=== PATIENT | female | born 1940 | race Caucasian/White ===

== ENCOUNTER 2024-01-10 04:34 | Observation (INO) | payer OTHER, SELFPAY ==
[2024-01-09 23:54] VITALS: BP 165/68
[2024-01-10] VITALS (8 sets, daily range): BP systolic 130–171; BP diastolic 51–75; PULSE 69–75; BMI 28.7; BMI 28.5
[2024-01-10 00:38] LABS: % Basophils 0.5 % (0-2); % Eosinophils 1.6 % (0-6); % Immature Granulocytes 0.5 % (0-0.5); % Lymphocytes 8.5 % (20.5-51.1); % Monocytes 4.8 % (1.7-9.3); % Neutrophils 84.1 % (42.2-75.2); Absolute Basophils 0.1 10^3/uL (0-0.2); Absolute Eosinophils 0.2 10^3/uL (0-0.7); Absolute Immature Granulocytes 0.1 10^3/uL (0-0.05); Absolute Lymphocytes 0.9 10^3/uL (1.2-3.4); Absolute Monocytes 0.5 10^3/uL (0.1-0.6); Absolute Neutrophils 8.7 10^3/uL (1.4-6.5); Hemoglobin 10.6 g/dL (12.0-16.0); Mean Corp Hgb Conc. 33.1 g/dL (33.0-37.0); Mean Corpuscular Hgb 29.4 pg (27.0-31.0); Mean Corpuscular Volume 88.9 fL (81.0-99.0); Mean Platelet Volume 9.5 fL (7.4-10.4); Nucleated Red Blood Cells % 0 %; Platelet Count 227 10^3/uL (130-400); Red Cell Dist. Width 14.1 % (11.5-14.5); White Blood Cell Count 10.4 10^3/uL (4.8-10.8)
[2024-01-10] MEDS: ANTIVERT 25 MG PO (00:52)
[2024-01-10] MEDS: NSS 1000 IV (00:52)
[2024-01-10 00:54] LABS: ALT (SGPT) 21 U/L (0-35); AST (SGOT) 33 U/L (14-36); Albumin 4.3 g/dl (3.5-5.0); Alkaline Phosphatase 156 U/L (38-126); Blood Urea Nitrogen 34 mg/dl (7-17); Calcium 9.8 mg/dl (8.4-10.2); Carbon Dioxide 30 mmol/L (22-30); Chloride 101 mmol/L (98-107); Estimated Creatinine Clearance 35 ml/min; Glucose 139 mg/dl (70-99); Potassium 3.8 mmol/L (3.5-5.1); Sodium 144 mmol/L (135-145); Total Bilirubin 0.4 mg/dl (0.2-1.3); Total Protein 7.8 g/dl (6.3-8.2); eGFR 56.25
[2024-01-10 00:58] LABS: Troponin I < 0.012 ng/ml
[2024-01-10] MEDS: ZOFRAN 4 MG IV ×2 (01:03→03:26)
--- NOTE | 2024-01-10 01:10 | ED.GENMED ---
History of Present Illness
General
Chief Complaint: Dizziness
Source: patient
Exam Limitations: none
Time Seen by Provider: 01/10/24 00:19
History of Present Illness
History of Present Illness:
This is a 83 year old female that comes in with c/o just not feeling well and dizziness. States that she was stung by a yellow jacked on Tuesday. States that she was at [facility] [employer] and she just went outside for second and she was
stung. States that the area is on the left elbow and it still feels warm. 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 Then she went to see her PCP. Tuesday she was Ok but just not feeling herself.
Today she went to a Picnic and went outside. states that she was slightly dizzy but still drove. States that she was at home tonight watching TV and she broke out in a sweat and was dizzy. States that it was a lightheaded feeling. Denies any
fever, chills, chest pain, SOB, abd pain, nausea, vomiting, diarrhea, headache, urinary burning.
Past History
Past History
ED Past Medical History: Cancer (Breast CA), HTN, Hypercholesterolemia and Other (Lyme disease Psoriasis, Anemia, Vertigo)
ED Past Surgical History: Cardiac (Pacemaker) and Other (cataracts, Left mastectomy)
Social History
Tobacco: Non-smoker
Alcohol: None
Personal:
Living: assisted living ([facility])
Review of Systems
Review of Systems
All Other Systems: ROS reviewed and negative except as documented in HPI and ROS
Constitutional: Reports no symptoms; Denies fever or chills
EENT: Reports no symptoms
Respiratory: Reports no symptoms; Denies cough or trouble breathing
Cardiac: Reports no symptoms; Denies chest pain
ABD/GI: Reports no symptoms; Denies abdominal pain, nausea, vomiting or diarrhea
: Reports no symptoms; Denies dysuria, frequency or urgency
Musculoskeletal: Reports no symptoms
Skin: Reports no symptoms
Neurological: Reports dizzy (Lightheaded); Denies headache
Psychiatric: Reports no symptoms
Phy Exam
General Physical Exam
General Presentation: no apparent distress
General age: appears stated age
General Skin: warm and dry
General Habitus: elderly
General Mental: alert
General Hydration: dry mucous membranes
ENT Exam
ENT Exam: TM's normal, pharynx normal and neck supple
Eye Exam
Eye Exam: PERRL and EOMI
Cardiovascular Exam
Cardiovascular Exam: regular rate/rhythm, no edema, normal peripheral pulses and other (Murmur)
Pulmonary Exam
Pulmonary Exam: lungs clear, no respiratory distress, no rales, chest non tender, no crackles, no wheezing and no cough
Gastrointestinal Exam
Gastrointestinal Exam: normal bowel sounds, non tender, soft, no organomegaly, no pulsatile mass and non distended
NIH Stroke Score
Level of Consciousness: 0 - Alert
LOC questions: 0-Answers both correctly
LOC Commands: 0-Performs both correctly
Best Gaze: 0-Normal
Visual Clark: 0=Normal, no visual loss
Facial palsy: 0=Normal, symmetrical
Motor - Right Arm: 0=No drift 10 seconds
Motor - Left Arm: 0=No drift 10 seconds
Motor - Right Le-No drift 5 seconds
Motor - Left Le-No drift 5 seconds
Limb Ataxia: 0-Absent
Sensation: 0-Normal
Best Language: 0-No aphasia
Dysarthria: 0-Normal
Extinction and Inattention: 0-No abnormality
Total Score:: 0
Musculoskeletal Exam
Musculoskeletal Exam: full ROM, no edema and other (Hand grasp and push pulls equal)
Skin Exam
Skin Exam: normal color, warm/dry, no rash and no petechia
Psychiatric Exam
Psychiatric Exam: normal mood/affect
Course
Orders/Labs/Results
Orders:
Orders
01/10/24 00:04
EKG [Electrocardiogram (*1)] Urgent
Reason for Study: Other
Other Reason for Exam: dizziness
EKG- Treatment ONCE
01/10/24 00:22
Complete Blood Count/With Diff Urgent
Comprehensive Metabolic Panel Urgent
Troponin I Urgent
01/10/24 00:38
Orthostatic VS- Treatment ONCE
0.9% Sodium Chloride 1000 ml [Nss] 1,000 ml IV BOLUS
Meclizine [Antivert] 25 mg PO NOW STA
01/10/24 00:39
CT Head W/o Iv Contrast Urgent
Comment:
Reason For Exam: Dizziness
01/10/24 01:00
Ondansetron Injectable [Zofran] 4 mg .ROUTE .STK-MED ONE
01/10/24 01:03
Ondansetron Injectable [Zofran] 4 mg IV NOW STA
01/10/24 01:10
diazePAM [Valium Injection] 2 mg IV NOW STA
01/10/24 02:46
Urinalysis Reflex To Culture Urgent
Date Specimen was Collected: 01/10/24
Time Specimen was Collected: 02:45
Urine Microscopic Reflex Cult Urgent
Urine Culture Urgent
BARBARA Source: U
Specimen Description:
Date Specimen was Collected: 01/10/24
Time Specimen was Collected: 02:45
01/10/24 03:21
Ondansetron Injectable [Zofran] 4 mg IV NOW STA
01/10/24 04:00
Flush (0.9% Sodium Chloride) [Flush (Nss)] See Dose Instructions IV PER PROTOCOL
Abnormal Lab Results
01/10/24 01/10/24
00:22 02:46
RBC 3.60 L 10^6/uL
(4.20-5.40)
Hgb 10.6 L g/dL
(12.0-16.0)
Hct 32.0 L %
(37.0-47.0)
Abs Immat Gran (auto) 0.1 H 10^3/uL
(0-0.05)
Absolute Neuts (auto) 8.7 H 10^3/uL
(1.4-6.5)
Absolute Lymphs (auto) 0.9 L 10^3/uL
(1.2-3.4)
Neutrophils % 84.1 H %
(42.2-75.2)
Lymphocytes % 8.5 L %
(20.5-51.1)
BUN 34 H mg/dl
(7-17)
Glucose 139 H mg/dl
(70-99)
Alkaline Phosphatase 156 H U/L
(38-126)
Leukocyte Esterase Rfl Trace A
(Negative)
Urine RBC 3-6 A /HPF
(0-2)
Urine WBC (Reflex) 16-20 A /HPF
(0-5)
Urine Bacteria (Reflex) Moderate A
(Negative)
01/10/24 00:22
01/10/24 00:22
H/H slightly low. Dehydration. Glucose nonfasting. Alk phos elevation. Troponin <0.012 , Urine positive for infection.
Vital Signs
Initial and Last Documented VS:
Initial Vital Signs
Temp Pulse Resp BP Pulse Ox
98.0 F 64 20 165/68 100
01/09/24 23:54 01/09/24 23:54 01/09/24 23:54 01/09/24 23:54 01/09/24 23:54
Last Documented Vital Signs
Temp Pulse Resp BP Pulse Ox
98.0 F 73 13 157/58 96
01/09/24 23:54 01/10/24 03:15 01/10/24 03:15 01/10/24 03:00 01/10/24 02:46
MDM/Problems Addressed
Differential Diagnosis Includes:
Dehydration, UTI, Vertigo
MDM/Problems Addressed:
This is a 83 year old female that comes in with c/o dizziness. States that she was stung by a bee on Tuesday. Patient saw her PCP on . States that she has just not been feeling herself. States that she was lightheaded today but still drove
her car. Tonight watching TV she was dizzy and broke out into a sweat.
Will check labs, CT head, IV fluids, Interrogate Pacer
back into see patient. Patient states that she tried to get up to the BR and was still feeling dizzy. Patient denies dizziness when turning sided to side. Will let the fluid complete and then recheck patient. Explained that her CT of the head was
normal and her blood work shows dehydration.
Into see patient. Attempted to have patient sit on the edge of the bed. Patient became nauseated with moving and dizzy. Will admit. Hospitalist notified,
Chronic conditions affecting care:
Vertigo
Acute Exacerbation and/or Progression of Chronic Illness:
Vertigo
*Radiology
Radiology exam reviewed: radiology read reviewed (CT head- night hawk-No acute intracranial abnormalities. )
*Pulse Oximetry
Patient hypoxic: no
*EKG
Interpreted by ED Provider?: Yes
Heart Rate: 70
Rate: normal
Rhythm: ventricular paced
*Medical Technologist Clinical Interpretation
Rate: normal
Heart Rate: 73
Rhythm: ventricular paced
*Critical Care Note
Total Time (30-74mins, 75-104mins- exclusive of procedures): Not Applicable
ED Attending Note
-
Portions of this chart may have been created with voice recognition software.� Occasional wrong word or��sound alike� substitutions may have occurred due to the inherent limitations of voice recognition software.
Discharge Plan
Departure
Patient Disposition: Admit
Date of Disposition: 01/10/24
Time of Disposition: 03:23
Admit to: Telemetry
Presentation/result/management discussed w/ accepting MD/DO: Hospitalist
Patient with high blood pressure during this ER visit?: Yes
Condition: Good
Covid-19: Not Applicable
Discharge Problem:
Dizziness, Nausea & vomiting, Acute UTI (urinary tract infection)
Prescriptions:
No Action
carvedilol 25 mg Tablet
25 mg PO BID
amlodipine 5 mg Tablet
5 mg PO DAILY
ferrous sulfate [Iron (ferrous sulfate)] 325 mg (65 mg iron) Tablet
325 mg PO QMWF
aspirin 81 mg Tablet,Chewable
81 mg PO HS
hydrochlorothiazide 25 mg Tablet
25 mg PO DAILY
paroxetine HCl [Paxil CR] 25 mg Tablet Extended Release 24 Hr
25 mg PO DAILY
Rx Instructions:
pt needs brand only
rosuvastatin 5 mg Tablet
5 mg PO DAILY
cholecalciferol (vitamin D3) [Vitamin D3] 50 mcg (2,000 unit) Capsule
50 mcg PO DAILY
Referrals:
Dionisio Winn MD [Family Provider] -
Interventions
Interventions:
*Risk Screen - Suicide Last Done: 01/10/24 00:07
*General Assessment Last Done: 01/10/24 00:07
*Neglect/Abuse Screening Last Done: 01/10/24 00:07
ED- Fall Risk Assessment Last Done: 01/10/24 00:07
*ED COVID-19 Vaccine History Last Done: 01/10/24 00:07
ED-Skin Assessment Last Done: 01/10/24 00:07
ED- Pulmonary Assessment Last Done: 01/10/24 00:07
ED- Neurological Assessment Last Done: 01/10/24 00:07
ED- Cardiac Assessment Last Done: 01/10/24 00:07
ED Swallowing Screen Last Done: 01/10/24 00:07
Discharge Date and Time
Print Language: KOSOVAN
[2024-01-10] MEDS: VALIUM INJECTION 2 MG IV (01:14)
[2024-01-10 03:19] LABS: Urine Albumin Negative (Neg - Trace); Urine Bilirubin Negative (Negative); Urine Character Clear (Clear); Urine Color Yellow; Urine Glucose Negative (Negative); Urine Ketone Negative (Negative); Urine Leukocyte Trace (Negative); Urine Nitrite Negative (Negative); Urine Occult Blood Negative (Negative); Urine Urobilinogen Negative (Neg - 1+)
[2024-01-10 03:34] LABS: Urine Bacteria Moderate (Negative); Urine Mucus Moderate; Urine Squamous Cell 16-20 /LPF (Few); Urine White Cell 16-20 /HPF (0-5)
--- NOTE | 2024-01-10 04:02 | HPS.HSE ---
Family Physician
-
Family Physician: Dionisio Winn
Chief Complaint
-
Dizziness
History of Present Illness
Patient is an 83-year-old female with past medical history significant for hypertension, hyperlipidemia, anxiety, heart block status pacemaker placement, psoriasis and chronic lymphedema of the lower extremities who presents to the emergency
department with acute episode of dizziness.
She reports having cold sweats and dizziness at around 10 pm while sitting down at home. It last a few minutes until EMS arrived. The dizziness at home was reported as lightheadedness without vertigo. She denied any vision changes, slurred
speech, weakness, numbness or headache. Upon EMS arrival symptoms resolved. She was otherwise hemodynamically stable enroute to the hospital. While in the ED she reported nausea and one episode of vomiting. She reported having vertigo while
attempting to walk to the commode. She denied having any symptoms at rest. She denies any chest pain or shortness of breath. She denies any palpitations. She reports that she follows with EP and had device last checked within the last 6 months
and found to be in good operating order.
Patient reported that had been in usual state of health up until about 4 days ago when she fell she had a insect bite (thought to be a yellowjacket). She had redness and swelling in her left elbow. She was given topical steroids and the swelling
started to improve. Other than that she said she had pain without any diarrhea vomiting melena or hematochezia. There has been no recent changes in medications. Diet has been normal. She denies any dysuria, frequency, urgency incontinence, flank
pain or back pain.
In ED She was afebrile,, BP was 157/58, pulse 73 oxygen saturation 96%. ECG showed a sensed V paced rhythm at a rate of 70. CT of the head shows no acute intracranial process. Chemistries were within normal limits. CBC showed a hemoglobin of
10.6 with normal white count and platelet counts. UA is equivocal with positive leukocyte esterase and few bacteria but with numerous squamous cells as well.
Medical History
Past Medical History
Past Medical History: Reports Cancer (breast ca in remission), HTN and Hypercholesterolemia
Additional Past Medical History:
Heart block s/p PPM
Anemia
Anxiety
Lymphedema
Psoriasis
Past Surgical History: Reports Other (Left breast Mastectomy)
Social History
Tobacco: Non-smoker
Alcohol: None
Drug: None
Personal: Single
Living: Assisted Living
Employment: Retired
Family History
Family History: Not pertinent
Allergies / Home Medications
Allergies reflects when Allergies were last updated in [facility].
Home Medications with original date entered in [facility]
Allergy/Medication List:
Allergies
Allergy/AdvReac Type Severity Reaction Status Date / Time
Penicillins Allergy Swelling Verified 01/09/24 23:54
Home Medications
amlodipine 5 mg tablet 5 mg PO DAILY 01/10/24
aspirin 81 mg chewable tablet 81 mg PO HS 01/10/24
carvedilol 25 mg tablet 25 mg PO BID 01/10/24
cholecalciferol (vitamin D3) 50 mcg (2,000 unit) capsule (Vitamin D3) 50 mcg PO DAILY 01/10/24
ferrous sulfate 325 mg (65 mg iron) tablet (Iron (ferrous sulfate)) 325 mg PO QMWF 01/10/24
hydrochlorothiazide 25 mg tablet 25 mg PO DAILY 01/10/24
paroxetine HCl 25 mg tablet,extended release 24 hr (Paxil CR) 25 mg PO DAILY 01/10/24
rosuvastatin 5 mg tablet 5 mg PO DAILY 01/10/24
Review of Systems
-
History Source: Patient
Constitutional: Reports No Symptoms
EENT: Reports No Symptoms
Respiratory: Reports No Symptoms
Cardiac: Reports Diaphoresis
Abdomen/GI: Reports Nausea and Vomiting
: Reports No Symptoms
Musculoskeletal: Reports No Symptoms
Skin: Reports No Symptoms
Neurological: Reports Dizzy
Endocrine: Reports No Symptoms
Hematologic/Lymphatic: Reports No Symptoms
Psych: Reports No Symptoms
Physical Exam
Vital Signs
Vital Signs
Temp Pulse Resp BP Pulse Ox
98.0 F 73 13 157/58 96
01/09/24 23:54 01/10/24 03:15 01/10/24 03:15 01/10/24 03:00 01/10/24 02:46
Physical Exam
General: No Apparent Distress
HEENT: NormoCephalic, Anicteric, Moist mucous membranes, Atraumatic and PERRLA
Respiratory: Clear
Cardiac: S1/S2, Regular Rhythm and Murmur
Breast: Deferred by me
GI: Soft, Non Tender, Non Distended and Normal Bowel Sounds
Rectal: Deferred by Provider
Genito-urinary: Deferred by me
Musculoskeletal: No Clubbing, No Cyanosis, Edema, Left Lower Extremity and Edema, Right Lower Extremity
Skin: Warm
Neuro: AO x 3
Hematologic/Lymphatic: No Lymphadenopathy
Psych: Calm
Laboratory Results
-
01/10/24 00:22
01/10/24 00:22
Laboratory Results
Total Bilirubin 0.4 mg/dl (0.2-1.3) 01/10/24 00:22
AST 33 U/L (14-36) 01/10/24 00:22
ALT 21 U/L (0-35) 01/10/24 00:22
Alkaline Phosphatase 156 U/L (38-126) H 01/10/24 00:22
Troponin I < 0.012 ng/ml 01/10/24 00:22
Data Reviewed
-
CT Scan: Report Reviewed by me
Medical Tests (Nuc Med, Echo, EKG etc): Image Personally Visualized and interpreted
Lab Data: Labs Reviewed by me
Impression/Plan
-
IMPRESSION:
83 y.o female from assisted living presenting with episode of lightheadedness and diaphoresis at home while having vertigo and nausea/vomiting in ED. ECG shows paced rhythm. Troponin is negative. CT head is negative. Labs unremarkable. Exam
with known cardiac murmur and LE edema. No focal neurological deficits.
PLAN:
1. Dizziness - Mixed picture with lightheadedness and diaphoresis while sitting at home and vertigo episode with attempted ambulation in ED. No nystagmus for me and vertigo could not be induced with head movement alone. Trop negative. Paced
rhythm on ECG. No focal deficits on exam, no headache and no history of neurological deficit during episode. Picture could be c/w TIA/ arrhythmia, orthostasis or peripheral vertigo.
- telemetry
- orthostatic vital signs, device interrogation ([facility]), trend troponin
- meclizine prn vertigo
- patient reports that she can never get an MRI due to nature of her device. If no focal deficit and resolution of symptoms, mri not necessary
- continue aspirin, statin and coreg for now
2. UTI - No direct urinary symptoms and u/a is contaminated with squamos.
- hold off on abx
- repeat u/a for clean catch
Patient may take her own Brand Paxil in am
Continue amlodipine and hctz pending orthostatics
DVT PPX - lovenox sq
Code status - full code
--- NOTE | 2024-01-10 06:35 | PTCARENOTE ---
Received pt from ED @ 0600. Pt AAOx3, VSS. Pt attempted to get up off stretcher to walk to bed, pt immediately got dizzy upon standing and opted to stand and pivot into bed instead of walking.
[2024-01-10 06:47] LABS: Urine Albumin Negative (Neg - Trace); Urine Bilirubin Negative (Negative); Urine Character Clear (Clear); Urine Color Yellow; Urine Glucose Negative (Negative); Urine Ketone Negative (Negative); Urine Leukocyte Negative (Negative); Urine Nitrite Negative (Negative); Urine Occult Blood Negative (Negative); Urine Urobilinogen Negative (Neg - 1+)
[2024-01-10 07:27] LABS: Troponin I < 0.012 ng/ml
[2024-01-10] MEDS: NORVASC 5 MG PO (09:49)
[2024-01-10] MEDS: VITAMIN D3 (cholecalciferol) 50 MCG PO (09:50)
[2024-01-10] MEDS: COREG 25 MG PO (09:51)
[2024-01-10] MEDS: CRESTOR 5 MG PO (09:51)
[2024-01-10] MEDS: ORETIC 25 MG PO (09:51)
--- NOTE | 2024-01-10 11:40 | W.PN.HOSP.TC ---
Today's Communication/Plan
-
PT eval and DC
Assessment / Plan
Assessment / Plan
83 y.o female from assisted living presenting with episode of lightheadedness and diaphoresis at home while having vertigo and nausea/vomiting in ED. ECG shows paced rhythm. Troponin is negative. CT head is negative. Labs unremarkable. Exam
with known cardiac murmur and LE edema. No focal neurological deficits.
PLAN:
1. Dizziness - Mixed picture with lightheadedness and diaphoresis while sitting at home and vertigo episode with attempted ambulation in ED. nonfocal neurologically. Nilesh-Hallpike maneuver negative. No ataxia. Trop negative. Paced rhythm on ECG.
Picture c/w peripheral vertigo.
- Pt with resolved symptoms now.
- Check orthostatic vital signs ; PT eval
- meclizine prn vertigo
- patient reports that she can never get an MRI due to nature of her device. Feel MRI is not necessary
- continue aspirin, statin and coreg for now
2. No UTI - second UA neg ;first UA poss contamination ( lot of squams seen). Plus patient asymptomatic without dysuria frequency based on interview.
Patient may take her own Brand Paxil in am
Continue amlodipine and hctz pending orthostatics
DVT PPX - lovenox sq
Code status - full code
If no symptoms with PT will DC home.
Anticipated Discharge: Today
Subjective/Interval History
-
Date of Service: January 10, 2024
He denies any symptoms currently.
She thinks her symptoms have resolved.
No dizziness, vertigo or nausea vomiting.
Patient states she was in her usual state of health till Tuesday;in fact she drove on Tuesday without issue.
On Tuesday 9 to 10 PM she was watching television. All of a sudden sweat came on and she started to feel dizzy. She continued on to feel dizzy but then it started recovered to give us in the hospital. She remembers having a vertigo long time ago.
No headache. No changes with head movement. Has not walked out of the bed to see to see if symptoms will recur.
No speech disturbances or vision problems. No motor weakness or sensory disturbances in the limb.
Denies any tinnitus or hearing impairment.
Denies any chest pain or shortness of breath. No fever or chills.
No abdominal pain.
Objective Data
-
Labs:
Laboratory Results
01/10/24
00:22
WBC 10.4
Hgb 10.6 L
Hct 32.0 L
Plt Count 227
Sodium 144
Potassium 3.8
Chloride 101
Carbon Dioxide 30
BUN 34 H
Creatinine 1.0
Glucose 139 H
Calcium 9.8
Total Bilirubin 0.4
AST 33
ALT 21
Alkaline Phosphatase 156 H
Vital Signs:
Vital Signs
Temp Pulse Resp BP Pulse Ox
98.2 F 69 20 130/51 98
01/10/24 11:29 01/10/24 11:29 01/10/24 11:29 01/10/24 11:29 01/10/24 11:29
Review of Systems
-
Unable to obtain full review of systems at this time due to: Other (see above)
Physical Exam
-
General: No Apparent Distress
HEENT: Moist Mucous Membranes
Respiratory: Clear to Auscultation
Cardiac: Regular Rhythm and S1/S2
GI: Soft and Nontender
Neuro: AO x 3, No Motor Deficits and Other (No nystagmus either spontaneous or with [place] pike maneuver. No ataxia . Walked to bathroom in hurry during exam to urinate -got up without any symptom, no imbalance, no ataxia during transfer to the
bathroom. ); Negative Tremors, Slurred Speech or Facial Droop
Psych: Calm; Negative Confused
Data Reviewed
-
Labs: Labs Reviewed by me
[2024-01-10] MEDS: NON-FORMULARY ITEM 1 UNIT PO (11:55)
--- NOTE | 2024-01-10 13:13 | PTOTSP ---
Patient demonstrates safe and independent mobility with RW, asymptomatic throughout session, no skilled PT needed at this time.
--- NOTE | 2024-01-10 14:55 | CM ---
Addendum entered by Mery Fish 01/10/24 15:33:
Plan is for patient to return to [facility] independent living today, turkey picker from [facility] transport [phone] at 4pm.
Original Note:
quality control manager reviewed patient's chart and met with patient and patient was admitted under OBS, [place] letter provided to patient, explained and signed. Patient resides at [facility], patient is independent with adl's and uses a walker ambulation.
Patient drives.
Pharmacy: [facility]
PCP: Dr. Dionisio Winn
Plan; Home back to [facility] apartments.
--- NOTE | 2024-01-10 14:58 | W.DS.TRANS ---
DC Summary - [employer]
-
Discharge Instructions:
Discharge Diagnosis/Procedures Vertigo possible BPPV
Diet Low Cholesterol
Activity As tolerated
Driving Restrictions As prior to admission
Bathing Restrictions None
Instructions:
Stand-Alone Forms:
Changes to Home Medications: Yes
Discharge Medications:
DC Medications w/original date entered in [facility]
amlodipine 5 mg tablet 5 mg PO DAILY 01/10/24
aspirin 81 mg chewable tablet 81 mg PO HS 01/10/24
carvedilol 25 mg tablet 25 mg PO BID 01/10/24
cholecalciferol (vitamin D3) 50 mcg (2,000 unit) capsule (Vitamin D3) 50 mcg PO DAILY 01/10/24
ferrous sulfate 325 mg (65 mg iron) tablet (Iron (ferrous sulfate)) 325 mg PO QMWF 01/10/24
hydrochlorothiazide 25 mg tablet 25 mg PO DAILY 01/10/24
meclizine 25 mg tablet 25 mg PO Q8HPRN PRN dizziness/vertigo #21 tabs 01/10/24
paroxetine HCl 25 mg tablet,extended release 24 hr (Paxil CR) 25 mg PO DAILY 01/10/24
rosuvastatin 5 mg tablet 5 mg PO DAILY 01/10/24
Home Medication Changes
New med - meclizine
Pending Results: No
== END 2024-01-10 16:06 | disposition home or self-care (01) ==
LOC: 4 WEST ACU 04:34
PROVIDERS: Clinical Nurse Specialist Family Health; ADMITTING PHYSICIAN Internal Medicine; ATTENDING PHYSICIAN Internal Medicine; EMERGENCY PHYSICIAN Emergency Medicine; FAMILY PHYSICIAN Internal Medicine
DX: R42 Dizziness and giddiness (principal); E78.00 Pure hypercholesterolemia, unspecified; I10 Essential (primary) hypertension; R11.2 Nausea with vomiting, unspecified; E86.0 Dehydration; N39.0 Urinary tract infection, site not specified; T63.441A Toxic effect of venom of bees, accidental (unintentional), initial encounter; Y92.254 Theater (live) as the place of occurrence of the external cause; R01.1 Cardiac murmur, unspecified; R60.0 Localized edema; R61 Generalized hyperhidrosis; R94.31 Abnormal electrocardiogram [ECG] [EKG]; Z85.3 Personal history of malignant neoplasm of breast; Z95.0 Presence of cardiac pacemaker; Z90.12 Acquired absence of left breast and nipple; Z79.82 Long term (current) use of aspirin; F41.9 Anxiety disorder, unspecified; M25.422 Effusion, left elbow; Z88.0 Allergy status to penicillin
CPT/HCPCS: 70450; 80053; 81003; 81015; 84484; 85025; 87070; 87086; 93005; 96361; 96374; 96375; 96376; 97161; 99285; G0378